=== PATIENT | female | born 1965 | race Caucasian/White ===

== ENCOUNTER 2017-03-25 09:52 | Outpatient (CLI) | payer OTHER ==
[2017-03-25 10:05] LABS: BASOPHILS % (AUTO) 0.5 %; EOSINOPHILS # (AUTO) 0.1 10^3/uL (0.0-0.7); EOSINOPHILS % (AUTO) 1.6 %; HCT - HEMATOCRIT 39.9 % (37.0-47.0); HGB - HEMOGLOBIN 13.6 g/dL (12.0-16.0); LYMPHOCYTES # (AUTO) 3.2 10^3/uL (1.5-3.5); LYMPHOCYTES % (AUTO) 41.4 %; MEAN CORPUSCULAR HEMOGLOBIN 29.1 pg (27.0-31.0); MEAN CORPUSCULAR VOLUME 85.5 fL (81.0-99.0); MEAN PLATELET VOLUME 7.2 fL (7.9-10.8); MONOCYTES # (AUTO) 0.5 10^3/uL (0.0-1.0); MONOCYTES % (AUTO) 6.2 %; NEUTROPHILS # (AUTO) 3.9 10^3/uL (1.5-6.6); NEUTROPHILS % (AUTO) 50.3 %; NUCLEATED RED BLOOD CELLS AUTO 0.1 /100WBC; RED BLOOD COUNT 4.67 10^6/uL (4.20-5.40); RED CELL DISTRIBUTION WIDTH 13.9 % (12.0-15.0); UNCORRECTED WHITE BLOOD COUNT 7.8 x10^3/uL; WHITE BLOOD COUNT 7.8 x10^3/uL (4.8-10.8)
[2017-03-25 10:26] LABS: ALBUMIN/GLOBULIN RATIO 1.2 (1.0-2.2); BILIRUBIN,TOTAL 0.4 mg/dL (0.2-1.0); BUN - BLOOD UREA NITROGEN 12 mg/dL (6-20); CARBON DIOXIDE - CO2 25 mmol/L (21-32); CHLORIDE 104 mmol/L (101-111); CHOL/HDL RATIO 2.9 (<4.4); CHOLESTEROL 206 mg/dL; CREATININE 0.7 mg/dL (0.4-1.0); GFR - MDRD 89 (>89); GLUCOSE 101 mg/dL (70-100); HDL CHOLESTEROL 71 mg/dL; LDL/HDL RATIO 1.5 (<4.4); POTASSIUM 3.9 mmol/L (3.5-5.0); SODIUM 138 mmol/L (135-145); TOTAL PROTEIN 7.6 g/dL (6.7-8.2); TRIGLYCERIDES 135 mg/dL; VLDL CHOLESTEROL 27 mg/dL
== END 2017-03-25 09:53 | disposition home or self-care (01) ==
LOC: LAB 09:52
PROVIDERS: ATTEND Physician Assistant Medical
DX: Z00.00 Encounter for general adult medical examination without abnormal findings (principal)
CPT/HCPCS: 36415; 80053; 80061; 84443; 85025

== ENCOUNTER 2017-04-06 16:05 | Outpatient (CLI) | payer OTHER ==
--- NOTE | 2017-04-08 12:46 | Mammography Report ---
DIGITAL SCREENING MAMMOGRAM: 04/06/2017 CLINICAL INDICATION: A 52-year-old, for screening. COMPARISON: 12/2015, 05/2014, 01/2013, 01/2012, 12/2010. TECHNIQUE: Routine CC and MLO projections were obtained of the breasts. FINDINGS: The breasts demonstrate scattered fibroglandular densities bilaterally. Punctate, typicall y benign calcifications are present. No suspicious masses, clustered microcalcifications, or regions of architectural distortion are identified. IMPRESSION: BENIGN FINDINGS. RECOMMENDATION: ROUTINE ANNUAL SCREENING UNLESS OTHERWISE CLINICALLY INDICATED. BIRADS CATEGORY 2-BENIGN FINDINGS. STANDARD QUALIFYING STATEMENTS 1. This examination was reviewed with the aid of Computer-Aided Detection (CAD). 2. A negative or benign imaging report should not delay biopsy if clinically suspicious findings are present. Consider surgical consultation if warranted. More than 5% of cancers are not identified by i maging. 3. Dense breasts may obscure an underlying neoplasm. JOB #: [id number] EXT JOB #:[id number]
== END 2017-04-06 16:06 | disposition home or self-care (01) ==
LOC: DI 16:05
PROVIDERS: ATTEND Physician Assistant Medical
DX: Z12.31 Encounter for screening mammogram for malignant neoplasm of breast (principal)
CPT/HCPCS: 77067

== ENCOUNTER 2018-05-08 05:16 | Outpatient (CLI) | payer OTHER ==
[2018-05-08 05:47] LABS: BASOPHILS # (AUTO) 0.1 10^3/uL (0.0-0.1); BASOPHILS % (AUTO) 0.8 %; EOSINOPHILS # (AUTO) 0.1 10^3/uL (0.0-0.7); EOSINOPHILS % (AUTO) 1.7 %; HGB - HEMOGLOBIN 13.6 g/dL (12.0-16.0); LYMPHOCYTES # (AUTO) 2.8 10^3/uL (1.5-3.5); LYMPHOCYTES % (AUTO) 42.4 %; MEAN CORPUSCULAR HEMOGLOBIN 29.4 pg (27.0-31.0); MEAN CORPUSCULAR HGB CONC 33.3 g/dL (32.0-36.0); MEAN CORPUSCULAR VOLUME 88.1 fL (81.0-99.0); MEAN PLATELET VOLUME 7.4 fL (7.9-10.8); MONOCYTES # (AUTO) 0.5 10^3/uL (0.0-1.0); MONOCYTES % (AUTO) 7.6 %; NEUTROPHILS # (AUTO) 3.1 10^3/uL (1.5-6.6); NEUTROPHILS % (AUTO) 47.5 %; PLT - PLATELET COUNT 234 10^3/uL (130-450); RED BLOOD COUNT 4.62 10^6/uL (4.20-5.40); WHITE BLOOD COUNT 6.5 x10^3/uL (4.8-10.8)
[2018-05-08 06:16] LABS: ALBUMIN 4.3 g/dL (3.2-5.5); ALBUMIN/GLOBULIN RATIO 1.4 (1.0-2.2); ALKALINE PHOSPHATASE 83 IU/L (42-121); ALT ALANINE AMINOTRANSFERASE 27 IU/L (10-60); AST ASPARTATE AMINOTRANSFERASE 28 IU/L (10-42); BILIRUBIN,TOTAL 0.5 mg/dL (0.2-1.0); BUN - BLOOD UREA NITROGEN 19 mg/dL (6-20); CALCIUM 9.1 mg/dL (8.5-10.3); CARBON DIOXIDE - CO2 25 mmol/L (21-32); CHLORIDE 104 mmol/L (101-111); CHOL/HDL RATIO 2.6 (<4.4); CHOLESTEROL 196 mg/dL; CREATININE 0.7 mg/dL (0.4-1.0); GFR - MDRD 88 (>89); GLUCOSE 114 mg/dL (70-100); HDL CHOLESTEROL 76 mg/dL; LDL CHOLESTEROL,CALCULATED 96 mg/dL; LDL/HDL RATIO 1.3 (<4.4); SODIUM 138 mmol/L (135-145); TOTAL PROTEIN 7.3 g/dL (6.7-8.2); VLDL CHOLESTEROL 24 mg/dL
== END 2018-05-08 05:17 | disposition home or self-care (01) ==
LOC: LAB 05:16
PROVIDERS: ATTEND Physician Assistant Medical
DX: Z00.00 Encounter for general adult medical examination without abnormal findings (principal)
CPT/HCPCS: 36415; 80053; 80061; 83721; 84443; 85025

== ENCOUNTER 2018-05-10 15:24 | Outpatient (CLI) | payer OTHER ==
--- NOTE | 2018-05-11 13:07 | Mammography Report ---
Reason: SCREEN w FRANKLIN Procedure Date: 05/10/2018 Accession Number: [id number] / [id number] Procedure: [facility]NY - Screening Mammo w/Franklin CPT Code: FULL RESULT: EXAM: Screening mammogram with franklin synthesis DATE: 05/10/2018 CLINICAL HISTORY: Screening mammogram TECHNIQUE: Bilateral CC and MLO views were obtained. COMPARISON: Mammogram 01/22/2016 FINDINGS: There are scattered fibroglandular densities. No suspicious masses, clustered microcalcifications, or regions of architectural distortion are identified. There are benign-appearing calcifications. Favor right intramammary lymph nodes, stable finding. IMPRESSION: Benign findings RECOMMENDATION: Routine annual screening unless otherwise clinically indicated. BIRADS CATEGORY 2: Benign findings STANDARD QUALIFYING STATEMENTS: 1. This examination was not reviewed with the aid of Computer-Aided Detection (CAD). 2. A negative or benign imaging report should not delay biopsy if clinically suspicious findings are present. Consider surgical consultation if warrented. More than 5% of cancers are not identified by imaging. 3. Dense breasts may obscure an underlying neoplasm. 4. This examination was reviewed with the aid of 3D breast imaging (tomosynthesis).
== END 2018-05-10 15:25 | disposition home or self-care (01) ==
LOC: DI 15:24
PROVIDERS: ATTEND Physician Assistant Medical
DX: Z12.31 Encounter for screening mammogram for malignant neoplasm of breast (principal)
CPT/HCPCS: 77063; 77067

== ENCOUNTER 2018-06-01 17:13 | Outpatient (CLI) | payer OTHER ==
[2018-06-01] MEDS ORDERED: GADOBUTROL 10 MMOL/10 ML VIAL ONE (17:36)
[2018-06-01] MEDS ORDERED: GADOBUTROL 10 MMOL/10 ML VIAL IVP ONE (18:16)
--- NOTE | 2018-06-01 18:59 | MRI Report ---
Reason: FACIAL PARESTHESIA, LEFT Procedure Date: 06/01/2018 Accession Number: [id number] / [id number] Procedure: MRI - Brain W/WO CPT Code: FULL RESULT: EXAM: MRI BRAIN WITHOUT AND WITH CONTRAST EXAM DATE: 06/01/2018 06:29 PM. CLINICAL HISTORY: FACIAL PARESTHESIA, LEFT. COMPARISON: MR brain without contrast 07/13/2014. TECHNIQUE: Multiplanar, multisequence T1-weighted and fluid-sensitive MR sequences of the brain were performed. Sequences optimized for routine evaluation. Other: None. IV Contrast: Without and with contrast, 10 cc IV Gadavist. FINDINGS: Diffusion weighted sequence shows no evidence for acute infarct. There is no mass, mass effect, midline shift or abnormal extraaxial fluid collection. Size and configuration of the ventricles are normal. Few punctate foci of T2 hyperintensities are seen in the subcortical left frontal and left parietal lobe, unchanged compared to 07/13/2014. Signal within the cortex and white matter. Otherwise normal. Brainstem and cerebellum appear normal. Major intracranial flow voids appear normal. Limited evaluation of the arteries and dural venous sinus structures on postcontrast imaging appears normal. There is no abnormal enhancement. Globes, orbits, optic nerve sheath complex, optic chiasm, pituitary, cavernous sinus and Meckel's cave appear normal. Mucous retention cysts in the inferior right maxillary sinus antrum, otherwise paranasal sinuses appear well aerated. Mastoid air cells appear unremarkable. Marrow signal and extracranial soft tissue appear normal. Craniocervical junction and visualized upper cervical cord appear unremarkable. Clival canal angle measures 155 degrees, basal angle measures 140 degrees. These are within normal limits. IMPRESSION: 1. Few punctate T2 hyperintensities in the subcortical left frontal and parietal lobe, unchanged compared to 07/13/2014, likely of no clinical significance. 2. Otherwise normal MRI of the brain without and with contrast. RADIA The call report notification system was initiated by Dr. Ezequiel Myrick at 18:48 hrs on 06/01/18. The above findings were discussed with Violette Perea PA-C by Dr. Ezequiel Myrick at 18:51 hrs on 06/01/18.
== END 2018-06-01 17:14 | disposition home or self-care (01) ==
LOC: DI 17:13
PROVIDERS: ATTEND Physician Assistant Medical
DX: R20.2 Paresthesia of skin (principal)
CPT/HCPCS: 70553; A9585

== ENCOUNTER 2018-08-01 09:26 | Day surgery (SDC) | payer OTHER ==
[2018-08-01] MEDS ORDERED: LACTATED RINGERS 1,000 ML IV ONE (09:30)
[2018-08-01] MEDS ORDERED: fentaNYL 250 MCG/5 ML VIAL IVP ONE (10:04)
[2018-08-01] MEDS ORDERED: MIDAZOLAM 2 MG/2 ML VIAL IVP ONE (10:04)
[2018-08-01 10:46] VITALS: BP 92/48
== END 2018-08-01 09:27 | disposition home or self-care (01) ==
LOC: SDS 09:26
PROVIDERS: ATTEND Surgery
PROC: 0DJD8ZZ Inspection of Lower Intestinal Tract, Via Natural or Artificial Opening Endoscopic (ICD-10-PCS; principal; 2018-08-01 10:30)
DX: Z12.11 Encounter for screening for malignant neoplasm of colon (principal); E66.9 Obesity, unspecified; Z68.34 Body mass index [BMI] 34.0-34.9, adult
CPT/HCPCS: 45378; J3010; J7120

== ENCOUNTER 2018-08-24 09:05 | Outpatient (CLI) | payer OTHER ==
[2018-08-24 10:20] LABS: HB2 TOTAL 14.2 g/dL; HEMOGLOBIN A1C 0.55 g/dL; HEMOGLOBIN A1C % 5.7 % (4.6-6.2)
== END 2018-08-24 09:06 | disposition home or self-care (01) ==
LOC: LAB 09:05
PROVIDERS: ATTEND Physician Assistant Medical
DX: R73.9 Hyperglycemia, unspecified (principal)
CPT/HCPCS: 36415; 82947; 83036

== ENCOUNTER 2019-06-16 14:17 | Outpatient (CLI) | payer OTHER ==
[2019-06-16 14:38] LABS: BASOPHILS # (AUTO) 0.1 10^3/uL (0.0-0.1); EOSINOPHILS # (AUTO) 0.2 10^3/uL (0.0-0.7); EOSINOPHILS % (AUTO) 2.4 %; HGB - HEMOGLOBIN 11.2 g/dL (12.0-16.0); LYMPHOCYTES # (AUTO) 2.7 10^3/uL (1.5-3.5); LYMPHOCYTES % (AUTO) 33.9 %; MEAN CORPUSCULAR HEMOGLOBIN 28.5 pg (27.0-31.0); MEAN CORPUSCULAR VOLUME 89.1 fL (81.0-99.0); MEAN PLATELET VOLUME 8.9 fL (7.9-10.8); MONOCYTES # (AUTO) 0.7 10^3/uL (0.0-1.0); MONOCYTES % (AUTO) 8.7 %; NEUTROPHILS # (AUTO) 3.8 10^3/uL (1.5-6.6); NEUTROPHILS % (AUTO) 47.1 %; PLT - PLATELET COUNT 307 10^3/uL (130-450); RED BLOOD COUNT 3.93 10^6/uL (4.20-5.40); WHITE BLOOD COUNT 8.1 x10^3/uL (4.8-10.8)
[2019-06-16 15:10] LABS: ALBUMIN 3.3 g/dL (3.2-5.5); ALBUMIN/GLOBULIN RATIO 0.8 (1.0-2.2); BILIRUBIN,TOTAL 0.5 mg/dL (0.2-1.0); CALCIUM 8.6 mg/dL (8.5-10.3); CREATININE 0.5 mg/dL (0.4-1.0); TOTAL PROTEIN 7.5 g/dL (6.7-8.2)
[2019-06-16 15:28] LABS: PLATELET MORPHOLOGY NORMAL APPEARANCE (NORMAL); RBC MORPHOLOGY (MULTIPLE) NORMAL APPEARANCE (NORMAL)
[2019-06-16 15:29] LABS: PLATELET ESTIMATE, MANUAL NORMAL (130-450,000) (NORMAL)
== END 2019-06-16 14:18 | disposition home or self-care (01) ==
LOC: LAB 14:17
PROVIDERS: ATTEND Nurse Practitioner
DX: R79.82 Elevated C-reactive protein (CRP) (principal); R05 Cough; R91.8 Other nonspecific abnormal finding of lung field; R06.02 Shortness of breath
CPT/HCPCS: 36415; 80053; 85025; 86140

== ENCOUNTER 2019-06-19 16:30 | Outpatient (CLI) | payer OTHER ==
[~2019-06-19 16:30] MED LIST: IOVERSOL 320 100 ML VIAL IVP ONE
[2019-06-19] MEDS: IOVERSOL 320 100 ML VIAL IVP ONE (16:46)
--- NOTE | 2019-06-19 17:34 | CT Report ---
Reason: SOB, LUNG MASS Procedure Date: 06/19/2019 Accession Number: [id number] / [id number] Procedure: CT - CHEST W CPT Code: Addended Final Report FULL RESULT: EXAM: CT CHEST EXAM DATE: 06/19/2019 04:44 PM. CLINICAL HISTORY: Shortness of breath. Known lung mass. COMPARISONS: Chest radiograph from 09/24/2012, CT chest from 11/06/2006. TECHNIQUE: Routine helical CT imaging was performed through the chest. IV contrast: 80 cc Optiray 320. Reconstructions: Coronal and sagittal. In accordance with CT protocol optimization, one or more of the following dose reduction techniques were utilized for this exam: automated exposure control, adjustment of mA and/or KV based on patient size, or use of iterative reconstructive technique. FINDINGS: Lungs/Pleura: There is patchy opacity with surrounding groundglass opacity in the posterior segment of the right upper lobe (series 6, image 39). This is new since the previous chest CT. There are small pulmonary nodules along the minor fissure measuring 8 mm and 4 mm (series 6, images 52 and 53). These have not significantly changed since 2006, suggestive of lymph nodes. There is mild nonspecific reticulation in the lateral left lower lobe (series 6, image 63), which may represent atelectasis or scar. No pleural effusion demonstrated. Mediastinum: There is mild mediastinal and right hilar adenopathy. For example, a precarinal node measures 2.1 x 1.3 cm (series 3, image 42). Right hilar node measures 1.7 x 1.4 cm (series 3, image 45). These are presumably reactive. Heart size is within normal limits. There is no pericardial effusion. The thoracic aorta is normal in caliber. There is a small outpouching from the medial aspect of the proximal descending thoracic aorta (series 3, image 34). This appears to be at the origin of a small aortic branch vessel and is not significantly changed since 2006. Bones: No suspicious osseous lesion. Visualized Abdomen: Gallbladder is surgically absent. Remainder of the visualized upper abdomen is unremarkable. Other: None. IMPRESSION: 1. Patchy right upper lobe opacity is most suggestive of pneumonia. However, would recommend follow-up 2-view chest radiograph in 6-8 weeks to ensure resolution. 2. Mild mediastinal and right hilar adenopathy is most likely reactive. RADIA The call report notification system was initiated by Dr. Timoteo Narvaez at 05:23 PM on 06/19/2019. ADDENDUM: 06/19/19 17:42 The above call report findings were discussed with HOUSTON Peacock, by Dr. Timoteo Narvaez at 05:42 PM on 06/19/2019.
== END 2019-06-19 16:31 | disposition home or self-care (01) ==
LOC: DI 16:30
PROVIDERS: ATTEND Nurse Practitioner
DX: R06.02 Shortness of breath (principal); R91.8 Other nonspecific abnormal finding of lung field; R59.0 Localized enlarged lymph nodes
CPT/HCPCS: 71260; Q9967

== ENCOUNTER 2020-03-29 10:10 | Outpatient (CLI) | payer OTHER ==
[2020-03-29 10:29] LABS: BASOPHILS # (AUTO) 0.1 10^3/uL (0.0-0.1); BASOPHILS % (AUTO) 0.8 %; EOSINOPHILS # (AUTO) 0.1 10^3/uL (0.0-0.7); EOSINOPHILS % (AUTO) 2.3 %; HGB - HEMOGLOBIN 13.2 g/dL (12.0-16.0); LYMPHOCYTES # (AUTO) 2.7 10^3/uL (1.5-3.5); LYMPHOCYTES % (AUTO) 43.5 %; MEAN CORPUSCULAR HGB CONC 32.4 g/dL (32.0-36.0); MEAN CORPUSCULAR VOLUME 89.5 fL (81.0-99.0); MEAN PLATELET VOLUME 9.2 fL (7.9-10.8); MONOCYTES # (AUTO) 0.4 10^3/uL (0.0-1.0); MONOCYTES % (AUTO) 6.5 %; NEUTROPHILS # (AUTO) 2.9 10^3/uL (1.5-6.6); NEUTROPHILS % (AUTO) 46.6 %; PLT - PLATELET COUNT 262 10^3/uL (130-450); RED BLOOD COUNT 4.55 10^6/uL (4.20-5.40); WHITE BLOOD COUNT 6.2 x10^3/uL (4.8-10.8)
[2020-03-29 10:45] LABS: ALBUMIN 4.3 g/dL (3.2-5.5); ALBUMIN/GLOBULIN RATIO 1.3 (1.0-2.2); ALKALINE PHOSPHATASE 79 IU/L (42-121); ALT ALANINE AMINOTRANSFERASE 20 IU/L (10-60); AST ASPARTATE AMINOTRANSFERASE 18 IU/L (10-42); BILIRUBIN,TOTAL 0.5 mg/dL (0.2-1.0); BUN - BLOOD UREA NITROGEN 20 mg/dL (6-20); CARBON DIOXIDE - CO2 28 mmol/L (21-32); CHLORIDE 100 mmol/L (101-111); CHOL/HDL RATIO 2.7 (<4.4); CHOLESTEROL 178 mg/dL; CREATININE 0.7 mg/dL (0.4-1.0); GLUCOSE 103 mg/dL (70-100); HDL CHOLESTEROL 67 mg/dL; LDL CHOLESTEROL,CALCULATED 99 mg/dL; LDL/HDL RATIO 1.5 (<4.4); SODIUM 136 mmol/L (135-145); TOTAL PROTEIN 7.6 g/dL (6.7-8.2); VLDL CHOLESTEROL 12 mg/dL
== END 2020-03-29 10:11 | disposition home or self-care (01) ==
LOC: LAB 10:10
PROVIDERS: ATTEND Nurse Practitioner
DX: Z00.00 Encounter for general adult medical examination without abnormal findings (principal); E66.3 Overweight
CPT/HCPCS: 36415; 80053; 80061; 83036; 83721; 84443; 85025

== ENCOUNTER 2020-05-06 13:45 | Outpatient (CLI) | payer OTHER ==
--- NOTE | 2020-05-09 12:40 | Mammography Report ---
BILATERAL DIGITAL SCREENING MAMMOGRAM 3D/2D: 05/06/2020 CLINICAL: Routine screening. Comparison is made to exams dated: 05/10/2018 mammogram, 04/06/2017 mammogram, 04/20/2016 mammogram, 1 08/05/2013 mammogram, 02/09/2013 mammogram, and 02/08/2012 mammogram - [facility]. Th ere are scattered fibroglandular elements in both breasts. No significant masses, calcifications, or other findings are seen in either breast. There has been no significant interval change. IMPRESSION: NEGATIVE There is no mammographic evidence of malignancy. A 1 year screening mammogram is recommended. This exam was interpreted at Station ID: [id number]. NOTE: For mammograms, a report in lay terms will be sent to the patient. Approximately 15% of breast malignancies will not be visualized mammographically. In the management of a palpable breast mass, a negative mammogram must not discourage biopsy of a clinically suspicious lesion. Electronically Signed By: Ezequiel Snyder M.D. ddp/mike:05/08/2020 13:25:59 ACR BI-RADS Category 1: Negative 3341F PARENCHYMAL PATTERN: (A) - The breast(s) demonstrate(s) scattered fibroglandular densities. BI-RADS CATEGORY: (1) - 1 RECOMMENDATION: (ANNUAL) - Recommend routine annual screening mammography. [id number] 1 year screening LATERALITY: (B)
== END 2020-05-06 13:46 | disposition home or self-care (01) ==
LOC: DI.N 13:45
PROVIDERS: ATTEND Nurse Practitioner
DX: Z12.31 Encounter for screening mammogram for malignant neoplasm of breast (principal)
CPT/HCPCS: 77063; 77067

== ENCOUNTER 2021-05-10 10:21 | Outpatient (CLI) | payer OTHER ==
[2021-05-10 11:11] LABS: BASOPHILS # (AUTO) 0.1 10^3/uL (0.0-0.1); BASOPHILS % (AUTO) 1.1 %; EOSINOPHILS # (AUTO) 0.3 10^3/uL (0.0-0.7); EOSINOPHILS % (AUTO) 4.4 %; HCT - HEMATOCRIT 40.8 % (37.0-47.0); HGB - HEMOGLOBIN 12.8 g/dL (12.0-16.0); LYMPHOCYTES # (AUTO) 2.2 10^3/uL (1.5-3.5); LYMPHOCYTES % (AUTO) 34.4 %; MEAN CORPUSCULAR HEMOGLOBIN 27.9 pg (27.0-31.0); MEAN CORPUSCULAR HGB CONC 31.4 g/dL (32.0-36.0); MEAN CORPUSCULAR VOLUME 88.9 fL (81.0-99.0); MEAN PLATELET VOLUME 9.5 fL (7.9-10.8); MONOCYTES # (AUTO) 0.4 10^3/uL (0.0-1.0); MONOCYTES % (AUTO) 6.7 %; NEUTROPHILS # (AUTO) 3.4 10^3/uL (1.5-6.6); NEUTROPHILS % (AUTO) 52.9 %; PLT - PLATELET COUNT 295 10^3/uL (130-450); RED BLOOD COUNT 4.59 10^6/uL (4.20-5.40); RED CELL DISTRIBUTION WIDTH 14.2 % (12.0-15.0); WHITE BLOOD COUNT 6.4 x10^3/uL (4.8-10.8)
[2021-05-10 11:29] LABS: ALBUMIN 4.2 g/dL (3.2-5.5); ALBUMIN/GLOBULIN RATIO 1.3 (1.0-2.2); ALKALINE PHOSPHATASE 89 IU/L (42-121); ALT ALANINE AMINOTRANSFERASE 26 IU/L (10-60); AST ASPARTATE AMINOTRANSFERASE 21 IU/L (10-42); BILIRUBIN,TOTAL 0.3 mg/dL (0.2-1.0); BUN - BLOOD UREA NITROGEN 21 mg/dL (6-20); CALCIUM 9.1 mg/dL (8.5-10.3); CARBON DIOXIDE - CO2 25 mmol/L (21-32); CHLORIDE 106 mmol/L (101-111); CHOL/HDL RATIO 3.1 (<4.4); CHOLESTEROL 222 mg/dL; CREATININE 0.8 mg/dL (0.4-1.0); GFR - MDRD 75 (>89); GLUCOSE 105 mg/dL (70-100); HDL CHOLESTEROL 72 mg/dL; LDL CHOLESTEROL,CALCULATED 126 mg/dL; LDL/HDL RATIO 1.8 (<4.4); POTASSIUM 3.9 mmol/L (3.5-5.0); SODIUM 141 mmol/L (135-145); TOTAL PROTEIN 7.5 g/dL (6.7-8.2); TRIGLYCERIDES 119 mg/dL; VLDL CHOLESTEROL 24 mg/dL
--- NOTE | 2021-05-10 11:31 | XRAY Report ---
PROCEDURE: Chest 2 View X-Ray INDICATIONS: LUNG MASS TECHNIQUE: 2 view(s) of the chest. COMPARISON: Chest CT dated 06/19/1990 FINDINGS: Surgical changes and devices: None. Lungs and pleura: No pleural effusions or pneumothorax. Lungs are clear. Mediastinum: Mediastinal contours are normal. Heart size is normal. Bones and chest wall: No suspicious bony abnormalities. Cholecystectomy clips. IMPRESSION: No evidence of an acute cardiopulmonary abnormality. No definite mass visualized. Recommend correlati on with outside imaging is available. No mass is identified on comparison CT dated 06/19/2019. If fur ther workup is necessary, consider dedicated chest CT. Reviewed by: Cristi Quintero DO on 05/10/2021 10:30 AM KATHRYN Approved by: Cristi Quintero DO on 05/10/2021 10:30 AM KATHRYN Station ID: [id number]
[2021-05-10 11:34] LABS: CRP - C-REACTIVE PROTEIN < 1.0 mg/dL (0-1.0)
[2021-05-10 11:38] LABS: ESTIMATED AVERAGE GLUCOSE 126 mg/dL (70-100)
[2021-05-10 11:40] LABS: THYROID STIMULATING HORMONE 0.71 uIU/mL (0.34-5.60)
[2021-05-10 14:47] LABS: FECAL OCCULT BLOOD (FIT) POSITIVE (NEGATIVE)
== END 2021-05-10 10:22 | disposition home or self-care (01) ==
LOC: DI 10:21
PROVIDERS: ATTEND Nurse Practitioner
DX: R91.8 Other nonspecific abnormal finding of lung field (principal); R53.83 Other fatigue; Z13.220 Encounter for screening for lipoid disorders; Z12.11 Encounter for screening for malignant neoplasm of colon; E66.9 Obesity, unspecified; R79.82 Elevated C-reactive protein (CRP)
CPT/HCPCS: 36415; 80053; 80061; 82274; 83036; 83721; 84443; 85025; 85651; 86140

== ENCOUNTER 2021-06-10 08:00 | Outpatient (CLI) | payer OTHER | END 2021-06-10 23:59 | disposition home or self-care (01) | LOC: LAB.N 08:00 | PROVIDERS: ATTEND Physician Assistant | DX: J34.89 Other specified disorders of nose and nasal sinuses (principal); Z20.822 Contact with and (suspected) exposure to COVID-19 ==

== ENCOUNTER 2021-09-01 08:00 | Outpatient (CLI) | payer OTHER ==
[2021-09-01 21:18] LABS: CALCIUM 9.1 mg/dL (8.5-10.3); CREATININE 0.7 mg/dL (0.4-1.0)
== END 2021-09-01 23:59 ==
LOC: LAB.N 08:00
PROVIDERS: ATTEND Physician Assistant Medical
DX: M54.59 Other low back pain (principal)
CPT/HCPCS: 36415; 80048

== ENCOUNTER 2021-11-28 12:33 | Outpatient (CLI) | payer OTHER ==
--- NOTE | 2021-11-28 14:37 | XRAY Report ---
PROCEDURE: Foot 2 View RT INDICATIONS: FOOT JOINT PAIN,RIGHT TECHNIQUE: 2 views of the foot were acquired. COMPARISON: None FINDINGS: Bones: Mild hallux valgus angulation of the great toe is seen. No fractures or dislocations. No katrin picious bony lesions. Soft tissues: No tibiotalar joint effusion. Achilles tendon appears normal. IMPRESSION: No acute abnormality of the right foot. Reviewed by: Lisandro Nuñez on 11/28/2021 2:35 PM PDT Approved by: Lisandro Nuñez on 11/28/2021 2:35 PM PDT Station ID: [id number]
== END 2021-11-28 12:34 | disposition home or self-care (01) ==
LOC: DI 12:33
PROVIDERS: ATTEND Nurse Practitioner
DX: M79.671 Pain in right foot (principal)

== ENCOUNTER 2021-12-11 14:23 | Outpatient (CLI) | payer OTHER ==
--- NOTE | 2021-12-15 11:44 | Mammography Report ---
BILATERAL DIGITAL SCREENING MAMMOGRAM 3D/2D: 12/11/2021 CLINICAL: Routine screening. Comparison is made to exams dated: 05/06/2020 mammogram, 05/10/2018 mammogram, 04/06/2017 mammogram, 04/20/2016 mammogram, 06/05/2014 mammogram, and 02/09/2013 mammogram - [facility]. T here are scattered fibroglandular elements in both breasts. No significant masses, calcifications, or other findings are seen in either breast. There has been no significant interval change. IMPRESSION: NEGATIVE There is no mammographic evidence of malignancy. A 1 year screening mammogram is recommended. This exam was interpreted at Station ID: [id number]. NOTE: For mammograms, a report in lay terms will be sent to the patient. Approximately 15% of breast malignancies will not be visualized mammographically. In the management of a palpable breast mass, a negative mammogram must not discourage biopsy of a clinically suspicious lesion. Electronically Signed By: Jerry Cuevas M.D. atpacheco/mike:12/11/2021 17:38:56 ACR BI-RADS Category 1: Negative 3341F PARENCHYMAL PATTERN: (A) - The breast(s) demonstrate(s) scattered fibroglandular densities. BI-RADS CATEGORY: (1) - 1 RECOMMENDATION: (ANNUAL) - Recommend routine annual screening mammography. [id number] 1 year screening LATERALITY: (B)
== END 2021-12-11 14:24 | disposition home or self-care (01) ==
LOC: DI.N 14:23
DX: Z12.31 Encounter for screening mammogram for malignant neoplasm of breast (principal)

== ENCOUNTER 2022-02-18 14:57 | Outpatient (CLI) | payer OTHER ==
--- NOTE | 2022-02-18 20:04 | MRI Report ---
PROCEDURE: Foot RT W/O INDICATIONS: INJURY TO RIGHT FOOT TECHNIQUE: Noncontrast sagittal T1 spin echo and T2 fast spin echo with fat saturation, long-axis T1 spin echo a nd T2 fast spin echo with fat saturation, short-axis proton density fast spin echo and T2 fast spin e cho with fat saturation through the forefoot. COMPARISON: None right foot radiographs 11/28/2021. FINDINGS: Image quality: Excellent. Bones and joints: Mild hallux valgus. Mild/moderate degenerative changes are seen in the first metat arsophalangeal joint with subchondral cystic changes and small marginal osteophytes. Scattered mild d egenerative changes are seen in the interphalangeal joints of the toes. Moderate to severe degenerati ve changes are seen at the naviculocuneiform articulations with marginal osteophyte formation, subcho ndral cystic changes, and subchondral edema as well as full-thickness cartilage loss. Moderate to sev ere degenerative changes also seen at the second and third tarsometatarsal joints. Mild degenerative changes are seen at the fourth tarsometatarsal joint. No acute trabecular bone injury or fracture. Se samoids are normally aligned. No intraosseous lesions. Soft tissues: There is generalized mild grade 2 fatty infiltration of the foot musculature. Chronic pressure-related changes are seen in the subcutaneous tissues adjacent to the first and fifth metatar roxanne heads. Visualized flexor and extensor tendons appear intact, without tenosynovitis. No soft tiss ue ganglion cysts or bursal fluid collections. Sagittal images demonstrate no evidence for plantar p late tears. 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 2.Mild hallux valgus with mild to moderate first metatarsophalangeal joint osteoarthrosis. 3.No acute trabecular bone injury. No significant ligament or tendon injury is seen. Reviewed by: Evangelist Loredo MD on 02/18/2022 8:03 PM PDT Approved by: Evangelist Loredo MD on 02/18/2022 8:03 PM PDT Station ID: [id number]
== END 2022-02-18 14:58 | disposition home or self-care (01) ==
LOC: DI 14:57
PROVIDERS: ATTEND Podiatrist
DX: M19.071 Primary osteoarthritis, right ankle and foot (principal); M20.11 Hallux valgus (acquired), right foot

== ENCOUNTER 2022-06-07 09:16 | Outpatient (CLI) | payer OTHER ==
[2022-06-07 09:43] LABS: BASOPHILS # (AUTO) 0.1 10^3/uL (0.0-0.1); BASOPHILS % (AUTO) 0.9 %; EOSINOPHILS # (AUTO) 0.2 10^3/uL (0.0-0.7); EOSINOPHILS % (AUTO) 3.2 %; HGB - HEMOGLOBIN 12.5 g/dL (12.0-16.0); LYMPHOCYTES # (AUTO) 2.6 10^3/uL (1.5-3.5); LYMPHOCYTES % (AUTO) 38.3 %; MEAN CORPUSCULAR HEMOGLOBIN 27.2 pg (27.0-31.0); MEAN CORPUSCULAR HGB CONC 31.3 g/dL (32.0-36.0); MEAN CORPUSCULAR VOLUME 87.1 fL (81.0-99.0); MEAN PLATELET VOLUME 8.9 fL (7.9-10.8); MONOCYTES # (AUTO) 0.5 10^3/uL (0.0-1.0); MONOCYTES % (AUTO) 7.5 %; NEUTROPHILS # (AUTO) 3.4 10^3/uL (1.5-6.6); PLT - PLATELET COUNT 272 10^3/uL (130-450); RED BLOOD COUNT 4.59 10^6/uL (4.20-5.40); RED CELL DISTRIBUTION WIDTH 14.4 % (12.0-15.0); WHITE BLOOD COUNT 6.8 x10^3/uL (4.8-10.8)
[2022-06-07 10:00] LABS: ALBUMIN 3.9 g/dL (3.2-5.5); ALBUMIN/GLOBULIN RATIO 1.1 (1.0-2.2); ALKALINE PHOSPHATASE 90 IU/L (42-121); ALT ALANINE AMINOTRANSFERASE 22 IU/L (10-60); AST ASPARTATE AMINOTRANSFERASE 18 IU/L (10-42); BILIRUBIN,TOTAL 0.3 mg/dL (0.2-1.0); BUN - BLOOD UREA NITROGEN 19 mg/dL (6-20); CALCIUM 9.1 mg/dL (8.5-10.3); CARBON DIOXIDE - CO2 25 mmol/L (21-32); CHLORIDE 107 mmol/L (101-111); CHOL/HDL RATIO 2.7 (<4.4); CHOLESTEROL 222 mg/dL; CREATININE 0.8 mg/dL (0.4-1.0); GFR - MDRD 74 (>89); GLUCOSE 104 mg/dL (70-100); HDL CHOLESTEROL 81 mg/dL; LDL CHOLESTEROL,CALCULATED 118 mg/dL; LDL/HDL RATIO 1.5 (<4.4); POTASSIUM 4.1 mmol/L (3.5-5.0); SODIUM 138 mmol/L (135-145); TOTAL PROTEIN 7.5 g/dL (6.7-8.2); TRIGLYCERIDES 116 mg/dL; VLDL CHOLESTEROL 23 mg/dL
[2022-06-07 10:10] LABS: THYROID STIMULATING HORMONE 0.6 uIU/mL (0.34-5.60)
[2022-06-07 10:14] LABS: FREE T4 (FREE THYROXINE) 0.68 ng/dL (0.58-1.64)
== END 2022-06-07 09:17 | disposition home or self-care (01) ==
LOC: LAB 09:16
PROVIDERS: ATTEND Nurse Practitioner
DX: R53.83 Other fatigue (principal); Z13.220 Encounter for screening for lipoid disorders
CPT/HCPCS: 36415; 80053; 80061; 83721; 84439; 84443; 85025

== ENCOUNTER 2022-10-05 12:45 | Outpatient (CLI) | payer OTHER | END 2022-10-05 12:46 | disposition home or self-care (01) | LOC: CAM 12:45 | PROVIDERS: ATTEND Nurse Practitioner | DX: M54.12 Radiculopathy, cervical region (principal); M25.512 Pain in left shoulder | CPT/HCPCS: 97810; 97811 ==

== ENCOUNTER 2022-10-12 12:50 | Outpatient (CLI) | payer OTHER | END 2022-10-12 12:51 | disposition home or self-care (01) | LOC: CAM 12:50 | PROVIDERS: ATTEND Nurse Practitioner | DX: M54.12 Radiculopathy, cervical region (principal); M25.512 Pain in left shoulder | CPT/HCPCS: 97813; 97814 ==

== ENCOUNTER 2022-10-19 12:51 | Outpatient (CLI) | payer OTHER | END 2022-10-19 12:52 | disposition home or self-care (01) | LOC: CAM 12:51 | PROVIDERS: ATTEND Nurse Practitioner | DX: M54.12 Radiculopathy, cervical region (principal) | CPT/HCPCS: 97813; 97814 ==

== ENCOUNTER 2022-11-09 13:02 | Outpatient (CLI) | payer OTHER | END 2022-11-09 13:03 | disposition home or self-care (01) | LOC: CAM 13:02 | PROVIDERS: ATTEND Nurse Practitioner | DX: M54.12 Radiculopathy, cervical region (principal); M25.512 Pain in left shoulder | CPT/HCPCS: 97813; 97814 ==

== ENCOUNTER 2023-08-24 08:11 | Outpatient (CLI) | payer OTHER ==
--- NOTE | 2023-08-25 12:24 | Mammography Report ---
BILATERAL DIGITAL SCREENING MAMMOGRAM 3D/2D: 08/24/2023 CLINICAL: Routine screening. Comparison is made to exams dated: 12/11/2021 mammogram, 05/06/2020 mammogram, 05/10/2018 mammogram, 04/06/2017 mammogram, 04/20/2016 mammogram, and 06/05/2014 mammogram - [facility]. There are scattered areas of fibroglandular density in both breasts (category b / 25%-50% glandular t issue). No significant masses, calcifications, or other findings are seen in either breast. There has been no significant interval change. IMPRESSION: NEGATIVE There is no mammographic evidence of malignancy. A 1 year screening mammogram is recommended. Based on the Tyrer Cuzick model (a risk assessment model) the patient's lifetime risk is 5.5% and her 10 year risk is 1.8%. According to the ACR, ACS, and NCCN guidelines, an annual breast MRI exam lu g with mammogram is recommended if the patients lifetime risk is 20% or greater. This exam was interpreted at Station ID: [id number]. NOTE: For mammograms, a report in lay terms will be sent to the patient. Approximately 15% of breast malignancies will not be visualized mammographically. In the management of a palpable breast mass, a negative mammogram must not discourage biopsy of a clinically suspicious lesion. Electronically Signed By: Brooke Womack M.D., PH.D /mike:08/24/2023 10:34:03 letter sent: No_Letter ACR BI-RADS Category 1: Negative 3341F PARENCHYMAL PATTERN: (A) - The breast(s) demonstrate(s) scattered fibroglandular densities. BI-RADS CATEGORY: (1) - 1 Mammogram [id number] 1 year screening LATERALITY: (B)
== END 2023-08-24 08:12 | disposition home or self-care (01) ==
LOC: DI 08:11
DX: Z12.31 Encounter for screening mammogram for malignant neoplasm of breast (principal); R92.323 Mammographic fibroglandular density, bilateral breasts

== ENCOUNTER 2023-09-17 09:10 | Outpatient (CLI) | payer OTHER ==
[2023-09-17 09:35] LABS: BASOPHILS # (AUTO) 0.1 10^3/uL (0.0-0.1); EOSINOPHILS # (AUTO) 0.1 10^3/uL (0.0-0.7); EOSINOPHILS % (AUTO) 2.2 %; HCT - HEMATOCRIT 41.5 % (37.0-47.0); HGB - HEMOGLOBIN 12.9 g/dL (12.0-16.0); LYMPHOCYTES # (AUTO) 2.3 10^3/uL (1.5-3.5); LYMPHOCYTES % (AUTO) 38.2 %; MEAN CORPUSCULAR HEMOGLOBIN 27.1 pg (27.0-31.0); MEAN CORPUSCULAR HGB CONC 31.1 g/dL (32.0-36.0); MEAN CORPUSCULAR VOLUME 87.2 fL (81.0-99.0); MEAN PLATELET VOLUME 9.3 fL (7.9-10.8); MONOCYTES # (AUTO) 0.5 10^3/uL (0.0-1.0); MONOCYTES % (AUTO) 7.7 %; NEUTROPHILS % (AUTO) 50.7 %; PLT - PLATELET COUNT 249 10^3/uL (130-450); RED BLOOD COUNT 4.76 10^6/uL (4.20-5.40); RED CELL DISTRIBUTION WIDTH 15.7 % (12.0-15.0)
[2023-09-17 09:51] LABS: CARBON DIOXIDE - CO2 27 mmol/L (21-32); CHLORIDE 106 mmol/L (101-111); SODIUM 139 mmol/L (135-145)
[2023-09-17 09:52] LABS: ALBUMIN 4.3 g/dL (3.2-5.5); ALBUMIN/GLOBULIN RATIO 1.5 (1.0-2.2); ALKALINE PHOSPHATASE 106 IU/L (42-121); ALT ALANINE AMINOTRANSFERASE 16 IU/L (10-60); AST ASPARTATE AMINOTRANSFERASE 14 IU/L (10-42); BILIRUBIN,TOTAL 0.3 mg/dL (0.2-1.0); BUN - BLOOD UREA NITROGEN 24 mg/dL (6-20); CALCIUM 9.2 mg/dL (8.5-10.3); CHOL/HDL RATIO 3.7 (<4.4); CHOLESTEROL 190 mg/dL; CREATININE 0.7 mg/dL (0.6-1.3); GFR - MDRD 87 (>89); GLUCOSE 106 mg/dL (74-104); HDL CHOLESTEROL 51 mg/dL; LDL CHOLESTEROL,CALCULATED 105 mg/dL; LDL/HDL RATIO 2.1 (<4.4); TOTAL PROTEIN 7.1 g/dL (6.4-8.9); TRIGLYCERIDES 169 mg/dL (48-352); VLDL CHOLESTEROL 34 mg/dL
[2023-09-17 10:07] LABS: THYROID STIMULATING HORMONE 1.29 uIU/mL (0.34-5.60)
== END 2023-09-17 09:11 | disposition home or self-care (01) ==
LOC: LAB 09:10
PROVIDERS: ATTEND Nurse Practitioner
DX: Z00.00 Encounter for general adult medical examination without abnormal findings (principal); R73.03 Prediabetes; Z13.220 Encounter for screening for lipoid disorders; E66.9 Obesity, unspecified; R53.83 Other fatigue
CPT/HCPCS: 36415; 80053; 80061; 83721; 84443; 85025